=== PATIENT | female | born 1980 | race Hispanic/Latino ===

== ENCOUNTER 2020-03-21 08:40 | Outpatient (CLI) | payer BC ==
--- NOTE | 2020-03-21 11:45 | ULT ---
PELVIC ULTRASOUND: Transabdominal ultrasound of pelvis performed. INDICATION: Pelvic pain. Follow-up CT abdomen 01/29/2020 which revealed cyst in the right adnexa and evidence of uterine fibroids. FINDINGS: Uterus is enlarged and slightly heterogeneous. Evidence of a left fundal fibroid measuring up to 2.7 cm and a posterior fundal fibroid measuring up to 3.0 cm. Both ovaries are identified and appear unremarkable. No ovarian cyst identified. Color Doppler and spectral analysis demonstrates normal blood flow to both ovaries. Nabothian cyst seen in the region of the cervix. The endometrial stripe is normal, measured at 8-10 mm. IMPRESSION: 1. Heterogeneity in the uterus consistent with uterine fibroids. 2. Pelvic ultrasound otherwise unremarkable. POS: OFF
== END 2020-03-21 08:41 | disposition home or self-care (01) ==
LOC: BICULT 08:40
PROVIDERS: ATTEND Student in an Organized Health Care Education/Training Program
DX: N83.201 Unspecified ovarian cyst, right side (principal); D25.9 Leiomyoma of uterus, unspecified; N94.6 Dysmenorrhea, unspecified; N85.8 Other specified noninflammatory disorders of uterus
CPT/HCPCS: 76856; 93976